=== PATIENT | male | born 1965 | race Caucasian/White ===

== ENCOUNTER → 2025-09-24 | Outpatient (CLI) | payer OTHER, SELFPAY ==
--- NOTE | 2025-09-24 | XR_ITS ---
EXAMINATION: PA lateral chest 2 views TECHNIQUE: Upright PA lateral chest 2 views Date and time: September 24, 2025, 1124 hours, comparison January 29, 2020 INDICATIONS: Diagnosis bronchitis 1 week FINDINGS: Normal heart size Mild elevation right hemidiaphragm. No pneumonia or pulmonary edema Moderate osteopenia IMPRESSION: No active disease
== END | disposition home or self-care (01) ==
LOC: SDIM 10:40
PROVIDERS: PCP Internal Medicine; Referring Provider Internal Medicine; Visit Provider Internal Medicine
DX: J20.8 Acute bronchitis due to other specified organisms (principal)
CPT/HCPCS: 71046